=== PATIENT | male | born 1955 | race African-American/Black ===

== ENCOUNTER 2024-10-15 23:19 | Emergency (ER) | payer BC, MEDICAID ==
[~2024-10-15] VITALS: Ht 172.7 cm; Wt 99.8 kg
[2024-10-15] MEDS ORDERED: IBUPROFEN 400 MG TABLET ONE (23:38)
[2024-10-15] MEDS: IBUPROFEN 400 MG TABLET PO ONE (23:43)
[2024-10-16 01:30] VITALS: TEMP 98
[2024-10-16 02:05] VITALS: BP 142/75; O2SAT 94
== END 2024-10-16 03:12 | disposition home or self-care (01) ==
LOC: ER 23:29
DX: S13.4XXA Sprain of ligaments of cervical spine, initial encounter (principal); S43.491A Other sprain of right shoulder joint, initial encounter; S80.01XA Contusion of right knee, initial encounter; M25.511 Pain in right shoulder; M25.569 Pain in unspecified knee; E11.9 Type 2 diabetes mellitus without complications; J45.909 Unspecified asthma, uncomplicated; W05.0XXA Fall from non-moving wheelchair, initial encounter; Y93.89 Activity, other specified; Y92.89 Other specified places as the place of occurrence of the external cause; Y99.8 Other external cause status
CPT/HCPCS: 72125-TC; 73030-TC; 73564-TC